=== PATIENT | female | born 1990 | race African-American/Black ===

== ENCOUNTER 2017-03-29 10:29 | Emergency (ER) | payer OTHER ==
[~2017-03-29] VITALS: Ht 170.2 cm; Wt 51.4 kg
[~2017-03-29 10:29] MED LIST: BENT20TA PO; MOBI15TA PO
[2017-03-29 10:32] VITALS: BP 182/94; PULSE 104; RESP 18; TEMP 98.2; O2SAT 100
[2017-03-29] MEDS ORDERED: LO LTAB PO (10:35)
[2017-03-29] MEDS ORDERED: CLAR10CA3 PO (10:37)
--- NOTE | 2017-03-29 10:49 | PD ---
HPI Chief Complaint: Respiratory Symptoms Time Seen by Provider: 10:49 Travel History International Travel<30 days: No Contact w/Intl Traveler<30days: No Traveled to known affect area: No History of Present Illness HPI 26-year-old female came to the emergency room since she started to get shortness of breath and chest tightness sudden onset she was walking. Patient said it lasted for about 10-20 minutes and after that it got better. Vital signs are stable. No history of shortness of breath or chest pain. [facility] Past Medical History Narrative Medical list of her past medical, surgical, social and family history are reviewed from the nursing note. Anxiety: Yes ("PANIC ATTACKS") Diminished Hearing: No Immunizations Current: Yes Influenza Vaccination: No ?: Not LMP: 02/2017 : 0 Para: 0 Miscarriage: 0 : 0 Social History Alcohol Use: Yes (RARE) Tobacco Use: No Substance Use: No Allergies-Medications (Allergen,Severity, Reaction): Coded Allergies: No Known Allergies (Verified , 03/29/17) Comments no known drug allergies. Reported Meds & Prescriptions Reported Meds & Active Scripts Active Reported Claritin (Loratadine) 10 Mg Cap 10 Mg PO HS Lo Loestrin Fe 1/10 (Norethindrone-Ethinyl Estradiol-Fe) 1-10 Mg-Mcg Tab 1 Tab PO HS Narrative Medication List of her home medications reviewed from the nursing note. Review of Systems Except as stated in HPI: all other systems reviewed are Neg Physical Exam Narrative GENERAL: Awake, alert, no obvious distress SKIN: Focused skin assessment warm/dry. HEAD: Atraumatic. Normocephalic. EYES: Pupils equal and round. No scleral icterus. No injection or drainage. ENT: No nasal bleeding or discharge. Mucous membranes pink and moist. NECK: Trachea midline. No JVD. CARDIOVASCULAR: Regular rate and rhythm. No murmur appreciated. RESPIRATORY: No accessory muscle use. Clear to auscultation. Breath sounds equal bilaterally. GASTROINTESTINAL: Abdomen soft, non-tender, nondistended. Hepatic and splenic margins not palpable. MUSCULOSKELETAL: No obvious deformities. No clubbing. No cyanosis. No edema. NEUROLOGICAL: Awake and alert. No obvious cranial nerve deficits. Motor grossly within normal limits. Normal speech. PSYCHIATRIC: Appropriate mood and affect; insight and judgment normal. Data Data Last Documented VS Vital Signs Date Time Temp Pulse Resp B/P (MAP) Pulse Ox O2 Delivery O2 Flow Rate FiO2 03/29/17 11:06 76 16 141/87 (105) 100 Room Air 03/29/17 10:32 98.2 MDM Medical Decision Making Medical Screen Exam Complete: Yes Emergency Medical Condition: Yes Medical Record Reviewed: Yes Differential Diagnosis Anxiety, reactive every disease Narrative Course 11:33 AM patient's blood pressure was noticed to be high when she arrived. Upon asking patient says that she had once been told few months ago that her blood pressure was high and she has been watching it since then. 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 I'm going to repeat the blood pressure and if it has come down patient will be discharged home. 11:37 AM the repeat blood pressure is 144/83. Based on this and comfortable discharging her home. Procedures EKG Prior to Arrival: No Diagnosis Primary Impression: Shortness of breath Referrals: Primary Care Physician 1 week Additional Instructions: please return to the ER if the condition worsens or any other new concerns. Try to relax. Please follow-up with your primary care within next week to get your blood pressure rechecked. Med/Other Pt SpecificInfo: No Change to Meds Disposition: 01 DISCHARGE HOME Condition: Stable Veronica Kirby MD Mar 29, 2017 10:49
[2017-03-29 11:06] VITALS: BP 141/87; PULSE 76; RESP 16; O2SAT 100
== END 2017-03-29 12:12 | disposition home or self-care (01) ==
LOC: PHED 10:29
DX: R06.02 Shortness of breath (principal)
CPT/HCPCS: 99281